=== PATIENT | female | born 1990 | race Caucasian/White ===

== ENCOUNTER 2016-06-27 02:48 | Emergency (ER) | payer OTHER ==
[~2016-06-27] VITALS: Ht 157.5 cm; Wt 45.4 kg
[~2016-06-27 02:48] MED LIST: PRENATAL1 TA5 PO
[2016-06-27 02:56] VITALS: BP 117/66
--- NOTE | 2016-06-27 03:00 | NUR ---
TO ER BED 7
--- NOTE | 2016-06-27 03:07 | NUR ---
26 Y/O F W/C/O FELT SOMETHING MOVING IN HER R EAR. DENIES ANY PAIN ONLY DISCOMFORT WHEN SHE FELT SOMETHING MOVING. ER MADE AWARE.
--- NOTE | 2016-06-27 03:10 | NUR ---
Patient being evaluated by physician at bedside.
[2016-06-27 03:16] VITALS: BP 117/66
--- NOTE | 2016-06-27 03:17 | NUR ---
Patient discharged with v/s stable. Written and verbal after care instructions given and explained. Patient verbalized understanding. Ambulatory with steady gait. All questions addressed prior to discharge. Advised to follow up with PMD OR RETURN TO ER IF CONDITION WORSENS.
== END 2016-06-27 03:16 | disposition home or self-care (01) ==
LOC: MED 02:48
DX: H93.8X1 Other specified disorders of right ear (principal)

== ENCOUNTER 2018-05-06 21:10 | Emergency (ER) | payer OTHER ==
[~2018-05-06] VITALS: Ht 157.5 cm; Wt 44.5 kg
[~2018-05-06 21:10] MED LIST changes: +PREN1TAB86 PO; -PRENATAL1 TA5 PO
[2018-05-06 21:14] VITALS: BP 122/63
--- NOTE | 2018-05-06 21:14 | NUR ---
PT AMBULATED TO BED 2.
--- NOTE | 2018-05-06 21:15 | NUR ---
PATIENT PRESENTS TO ED WITH BIB SELF C/O COUGH AND LEFT SIDED RIB PAIN SINCE WEDNESDAY. PT STATES PAIN GETS WORSE WITH COUGH. DENIES HAVING OTHER SYMPTOMS. LUNG SOUNDS CLEAR B/L. PATIENT STATES PAIN OF 10/10 AT THIS TIME; VSS; PATIENT POSITIONED FOR COMFORT; HOB ELEVATED; BEDRAILS UP X2; BED DOWN. ER MD MADE AWARE OF PT STATUS.
--- NOTE | 2018-05-06 21:42 | NUR ---
PT TAKEN TO GET X-RAY VIA WHEELCHAIR.
--- NOTE | 2018-05-06 21:57 | NUR ---
PT BACK FROM X-RAY.
[2018-05-06] MEDS ORDERED: IBUPROFEN 800 MG TAB PO ONE (22:10)
[2018-05-06 22:38] VITALS: BP 107/50
--- NOTE | 2018-05-06 22:38 | NUR ---
Patient discharged with v/s stable. Written and verbal after care instructions given and explained. Patient alert, oriented and verbalized understanding of instructions. Ambulatory with steady gait. All questions addressed prior to discharge. ID band removed. Patient advised to follow up with PMD. Rx of PREDNISONE 50MG, MOTRIN 800MG, AND PROMETHAZINE HYDROCHLORIDE/DEXTROMETHORPHAN HYDROBROMIDE 6.25MG-15MG/5ML SYRUP given. Patient educated on indication of medication including possible reaction and side effects. Opportunity to ask questions provided and answered.
== END 2018-05-06 22:38 | disposition home or self-care (01) ==
LOC: MED 21:10
DX: T14.8XXA Other injury of unspecified body region, initial encounter (principal); R05 Cough; Z79.899 Other long term (current) drug therapy; X58.XXXA Exposure to other specified factors, initial encounter; Y93.89 Activity, other specified; Y92.89 Other specified places as the place of occurrence of the external cause; Y99.8 Other external cause status
CPT/HCPCS: 71101; 99283

== ENCOUNTER 2018-05-14 15:54 | Emergency (ER) | payer OTHER ==
[~2018-05-14] VITALS: Ht 157.5 cm; Wt 44.9 kg
[2018-05-14 16:18] VITALS: BP 109/68
--- NOTE | 2018-05-14 16:20 | NUR ---
PT TRIAGED AND AMBULATED TO ER LOBBY
--- NOTE | 2018-05-14 18:39 | NUR ---
1 CALL [facility] ORTEGA N/A 1844-2ND CALL LU[facility] ORTEGA N/A 1854-3RD CALL [facility]TEGA N/A
== END 2018-05-14 18:38 | disposition left against medical advice (07) ==
LOC: MED 15:54
DX: R05 Cough (principal); L53.9 Erythematous condition, unspecified; L29.9 Pruritus, unspecified; Z53.21 Procedure and treatment not carried out due to patient leaving prior to being seen by health care provider

== ENCOUNTER 2022-09-13 19:04 | Emergency (ER) | payer OTHER ==
[~2022-09-13] VITALS: Ht 157.5 cm; Wt 46.3 kg
[2022-09-13 19:11] VITALS: BP 108/68; PULSE 86; RESP 20; TEMP 98.1; O2SAT 99
--- NOTE | 2022-09-13 19:15 | NUR ---
Patient seen on chair sitting comfortably and awake. Alert and oriented x4. No acute distress. No complaints of pain or discomfort. Respirations even and unlabored. Rash seen on the right arm. No presence of discharge.
[2022-09-13] MEDS ORDERED: DIPH25TA53 PO (19:31)
[2022-09-13 19:37] VITALS: BP 126/72; PULSE 89; RESP 16; TEMP 98; O2SAT 99
--- NOTE | 2022-09-13 19:37 | NUR ---
Patient discharged with v/s stable. Written and verbal after care instructions given and explained. Patient alert, oriented and verbalized understanding of instructions. Ambulatory with steady gait. All questions addressed prior to discharge. ID band removed. Patient advised to follow up with PMD. Rx of Benadryl given. Patient educated on indication of medication including possible reaction and side effects. Opportunity to ask questions provided and answered.
== END 2022-09-13 19:37 | disposition home or self-care (01) ==
LOC: MED 19:04
DX: S50.861A Insect bite (nonvenomous) of right forearm, initial encounter (principal); Z79.899 Other long term (current) drug therapy; W57.XXXA Bitten or stung by nonvenomous insect and other nonvenomous arthropods, initial encounter; Y93.89 Activity, other specified; Y92.89 Other specified places as the place of occurrence of the external cause; Y99.8 Other external cause status
CPT/HCPCS: 99282